=== PATIENT | female | born 1990 ===

== ENCOUNTER 2019-05-19 20:12 | Emergency (ER) | payer OTHER ==
[~2019-05-19] VITALS: Ht 170.2 cm; Wt 61.2 kg
[~2019-05-19 20:12] MED LIST: ALLEGRA-D1 TAB.SR . PO; LEVSIN/SL0.125 MG SL; PROVENTIL3 ML/2.5 M IH
== END 2019-05-19 23:35 | disposition home or self-care (01) ==
LOC: ER 20:12
DX: K58.9 Irritable bowel syndrome, unspecified (principal); K29.70 Gastritis, unspecified, without bleeding